=== PATIENT | male | born 1960 | race African-American/Black ===

== ENCOUNTER 2017-01-17 17:11 | Inpatient (IN) ==
[2017-01-17 19:42] LABS: Basophils % 0.6 % (0.0-0.8); Eosinophils # 0.1 10*3/uL (0.0-0.87); Eosinophils % 2.6 % (0.00-10.9); Hematocrit 42.6 VOL% (42.0-52.0); Immature Granulocytes % 0.3 %; Immature Granulocytes Absolute 0.01 #; Lymphocytes # 1.2 10*3/uL (1.4-4.0); Lymphocytes % 38.1 % (21.2-54.2); Mean Corpuscular HGB Conc 32.9 GM/DL (32-36); Mean Corpuscular Hemoglobin 30 PG (27-34); Mean Corpuscular Volume 89.9 FL (87-102); Mean Platelet Volume 9.9 FL (9.6-12.0); Monocytes # 0.2 10*3/uL (0.11-0.8); Monocytes % 7.7 % (1.7-12.7); Neutrophils # 1.6 10*3/uL (1.4-7.4); Neutrophils % 50.7 % (38.7-73.9); Platelet Count 215 T/CUMM (130-400); Red Blood Count 4.74 MC/CUMM (3.8-5.5); Red Cell Distribution Width 12.3 % (9.3-17.3); White Blood Count 3.1 T/CUMM (4-12)
--- NOTE | 2017-01-17 19:46 | CT Report ---
Referring physician: Bushra Youssef MD Exam: CT brain without contrast Date: January 17, 2017 Comparison: CT brain April 06, 2016 Reason: Acute ataxia The patient is an Emergency Department patient on January 17, 2017. Technique: Axial images of the head were obtained without the use of contrast. Total DLP was 1012.1 mGy*cm. 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 There is also mild generalized cerebral and cerebellar atrophy/volume loss and probable chronic microvascular ischemic change. No hydrocephalus or midline shift is present. There is no evidence of recent intracranial hemorrhage, abnormal mass effect or an acute infarction. No acute osseous process is seen. There is mild opacification of the posterior right ethmoid air cells/right sphenoid sinus. The mastoid air cells appear clear. Note is made of chronic deformity of the left globe/eye. Impression: 1. No acute intracranial process is identified. 2. Chronic findings, similar to before. The CT exam was performed using one or more of the following dose reduction techniques: Automated exposure control and adjustment of the mA and/or kV according to patient size. PROCEDURE INTERPRETED AT [facility] DEPARTMENT OF RADIOLOGY Final Report Signed by: Dr. Mame Tracy
[2017-01-17 19:58] LABS: Alanine Aminotransferase < 9 U/L (16-61); Alkaline Phosphatase 226 U/L (45-117); Aspartate Amino Transferase 25 U/L (0-37); Blood Urea Nitrogen 7 MG/DL (7-18); Calcium 8.8 MG/DL (8.5-10.1); Glucose 91 MG/DL (74-106); Potassium 3.6 MMOL/L (3.5-5.1); Sodium 136 MMOL/L (136-145); Total Protein 8.2 G/DL (6.4-8.3)
[2017-01-17 20:04] LABS: Apearance,Urine CLEAR (Clear); Bilirubin,Urine Negative (Negative); Blood, Urine Negative (Negative); Glucose,Urine (UA) Negative (Negative); Ketones,Urine Negative (Negative); Nitrite,Urine Negative (Negative); Protein,Urine Negative; RBC,Urine <1 /HPF (0-4); Urine Color Yellow (Yellow); Urine Specific Gravity 1.004 (1.001-1.035); Urine Urobilinogen < 2.0 EU/DL (0.2-1.0)
[2017-01-17 20:09] LABS: INR 1.1; PT Patient Result 11.8 SECS; Partial Thromboplastin Time 24.3 SECS (0-40)
[2017-01-17 20:13] LABS: Barbiturates Screen,Urine Negative (Negative); Benzodiazepines Screen,Urine Negative (Negative); Cannabinoid Screen,Urine Negative (Negative); Opiate Screen,Urine Negative (Negative); Phencyclidine Screen,Urine Negative (Negative)
[2017-01-17] MEDS ORDERED: ONDANSETRON 4 MG/2 ML VIAL IV PRN (21:29)
[2017-01-17] MEDS ORDERED: ASPIRIN EC 325 MG TABLET PO PRN (21:32)
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
[2017-01-17] MEDS: SODIUM CHLORIDE 0.45% 1,000 ML IV SCH (22:30)
[2017-01-17] MEDS: ENOXAPARIN 40 MG/0.4 ML SYRINGE SUBCUT SCH (23:06)
[2017-01-18] MEDS: SODIUM CHLORIDE 0.45% 1,000 ML IV SCH ×3 (05:55→21:48)
[2017-01-18 06:54] LABS: Basophils % 0.7 % (0.0-0.8); Eosinophils # 0.1 10*3/uL (0.0-0.87); Hematocrit 37.2 VOL% (42.0-52.0); Immature Granulocytes % 0.3 %; Immature Granulocytes Absolute 0.01 #; Lymphocytes # 1.3 10*3/uL (1.4-4.0); Lymphocytes % 44.4 % (21.2-54.2); Mean Corpuscular HGB Conc 32.3 GM/DL (32-36); Mean Corpuscular Hemoglobin 29 PG (27-34); Mean Corpuscular Volume 89.9 FL (87-102); Mean Platelet Volume 9.9 FL (9.6-12.0); Monocytes # 0.3 10*3/uL (0.11-0.8); Monocytes % 8.5 % (1.7-12.7); Neutrophils # 1.3 10*3/uL (1.4-7.4); Neutrophils % 44.1 % (38.7-73.9); Platelet Count 197 T/CUMM (130-400); Red Blood Count 4.14 MC/CUMM (3.8-5.5); Red Cell Distribution Width 12.5 % (9.3-17.3)
[2017-01-18 07:34] LABS: Alanine Aminotransferase < 9 U/L (16-61); Alkaline Phosphatase 181 U/L (45-117); Aspartate Amino Transferase 19 U/L (0-37); Blood Urea Nitrogen 6 MG/DL (7-18); Glucose 80 MG/DL (74-106); Osmolality,Calculated 275.4 MOS/KG (273-304); Potassium 3.5 MMOL/L (3.5-5.1); Sodium 140 MMOL/L (136-145)
[2017-01-18 07:51] LABS: Hypochromasia 1+; Platelet Estimate Normal
[2017-01-18] MEDS: LACOSAMIDE 50 MG TABLET PO SCH ×2 (08:46→21:48)
[2017-01-18] MEDS: PANTOPRAZOLE 40 MG TABLET PO SCH (08:46)
--- NOTE | 2017-01-18 10:37 | Hospitalist Progress Note ---
Assessment and Plan (1) Seizure disorder Status: Chronic Assessment and plan: Continue vimpat Holding dilantin Neurology consult tomorrow Current Visit: No (2) Dizziness Status: Resolved Current Visit: Yes (3) Dilantin toxicity Status: Acute Assessment and plan: Trending down Continue to hold Neurology consult tomorrow Current Visit: Yes Hospitalist: Subjective Interval history: No acute events overnight. Dilantin level trending down. Patient feels better, denies dizziness. Exam - Constitutional Vitals: Period Temp Pulse Resp BP Sys/Davis Pulse Ox Last 24 Hr 97.5 F-98.7 F 69-79 18-20 93-127/62-76 94-98 General appearance: normal weight - Head Head exam: Present: normocephalic, atraumatic - Eye Eye exam: Present: EOMI Pupils: Present: KIMBERLY - ENT ENT exam: Present: normal exam - Neck Neck exam: Present: normal inspection - Respiratory Respiratory exam: Present: clear to auscultation bilaterally. Absent: rhonchi, wheezes - Cardiovascular Cardiovascular exam: Present: regular rate and rhythm - GI/Abdominal GI/Abdominal exam: Present: normal bowel sounds, soft. Absent: tenderness, rebound - Extremities Exam Extremities exam: Present: normal inspection - Back Exam Back exam: Present: normal inspection - Neurological Exam Neurological exam: Present: alert, oriented X3 - Psychiatric Psychiatric exam: Present: normal affect, normal mood - Skin Skin exam: Present: warm, intact Results - Labs CBC & BMP: 01/18/17 06:35 01/18/17 06:35
[2017-01-18] MEDS: ENOXAPARIN 40 MG/0.4 ML SYRINGE SUBCUT SCH (21:48)
[2017-01-19] MEDS: SODIUM CHLORIDE 0.45% 1,000 ML IV SCH ×2 (06:04→14:06)
[2017-01-19 07:48] LABS: Basophils % 0.5 % (0.0-0.8); Eosinophils # 0.1 10*3/uL (0.0-0.87); Eosinophils % 1.7 % (0.00-10.9); Hematocrit 35.4 VOL% (42.0-52.0); Hemoglobin 11.6 GM/DL (14.0-18.0); Immature Granulocytes % 0.2 %; Immature Granulocytes Absolute 0.01 #; Lymphocytes # 1.5 10*3/uL (1.4-4.0); Lymphocytes % 35.9 % (21.2-54.2); Mean Corpuscular HGB Conc 32.8 GM/DL (32-36); Mean Corpuscular Hemoglobin 29 PG (27-34); Mean Corpuscular Volume 89.8 FL (87-102); Mean Platelet Volume 10.8 FL (9.6-12.0); Monocytes # 0.3 10*3/uL (0.11-0.8); Monocytes % 7.6 % (1.7-12.7); Neutrophils # 2.2 10*3/uL (1.4-7.4); Neutrophils % 54.1 % (38.7-73.9); Platelet Count 188 T/CUMM (130-400); Red Blood Count 3.94 MC/CUMM (3.8-5.5); Red Cell Distribution Width 12.5 % (9.3-17.3); White Blood Count 4.1 T/CUMM (4-12)
[2017-01-19 08:18] LABS: Albumin 2.9 G/DL (3.4-5.0); Bilirubin,Direct 0.1 MG/DL (0.0-0.20); Bilirubin,Indirect 1.1 MG/DL (0.0-1.0); Bilirubin,Total 1.2 MG/DL (0.2-1.0); Total Protein 5.8 G/DL (6.4-8.3)
[2017-01-19] MEDS: PANTOPRAZOLE 40 MG TABLET PO SCH (08:32)
[2017-01-19] MEDS: LACOSAMIDE 50 MG TABLET PO SCH (08:32)
[2017-01-19 09:08] LABS: Calcium 7.9 MG/DL (8.5-10.1); Magnesium 1.8 MG/DL (1.8-2.4); Osmolality,Calculated 273.5 MOS/KG (273-304); Potassium 3.6 MMOL/L (3.5-5.1)
[2017-01-19 12:17] VITALS: BP 101/70
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
[2017-01-19] MEDS ORDERED: LACOSAMIDE 50 MG TABLET PO SCH (14:22)
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
== END 2017-01-19 15:35 | disposition left against medical advice (07) | DRG 149 ==
LOC: N.ED 17:11 → N.EDINP 21:29 → SUATTDRO 21:29 → N.5E 22:11
PROVIDERS: ADMIT Student in an Organized Health Care Education/Training Program; ATTEND Internal Medicine

== ENCOUNTER 2017-03-03 15:22 | Inpatient (IN) ==
[2017-03-03] MEDS ORDERED: SODIUM CHLORIDE 0.9% 500 ML IV STA (16:06)
[2017-03-03 16:17] LABS: Eosinophils # 0.1 10*3/uL (0.0-0.87); Eosinophils % 3.7 % (0.00-10.9); Hematocrit 39.7 VOL% (42.0-52.0); Hemoglobin 13.1 GM/DL (14.0-18.0); Immature Granulocytes % 0.3 %; Immature Granulocytes Absolute 0.01 #; Lymphocytes # 1.6 10*3/uL (1.4-4.0); Lymphocytes % 42.5 % (21.2-54.2); Mean Corpuscular Hemoglobin 30 PG (27-34); Mean Corpuscular Volume 91.7 FL (87-102); Mean Platelet Volume 9.9 FL (9.6-12.0); Monocytes # 0.4 10*3/uL (0.11-0.8); Monocytes % 10.2 % (1.7-12.7); Neutrophils # 1.6 10*3/uL (1.4-7.4); Neutrophils % 42.3 % (38.7-73.9); Platelet Count 190 T/CUMM (130-400); Red Blood Count 4.33 MC/CUMM (3.8-5.5); Red Cell Distribution Width 12.2 % (9.3-17.3); White Blood Count 3.8 T/CUMM (4-12)
[2017-03-03 16:20] LABS: Apearance,Urine CLEAR (Clear); Bilirubin,Urine Negative (Negative); Blood, Urine Negative (Negative); Glucose,Urine (UA) Negative (Negative); Ketones,Urine Negative (Negative); Nitrite,Urine Negative (Negative); Protein,Urine Negative; RBC,Urine 1 /HPF (0-4); Urine Color Colorless (Yellow); Urine Specific Gravity 1.001 (1.001-1.035); Urine Urobilinogen < 2.0 EU/DL (0.2-1.0); WBC,Urine <1 /HPF (0-6)
[2017-03-03 16:25] LABS: Barbiturates Screen,Urine Negative (Negative); Benzodiazepines Screen,Urine Negative (Negative); Cannabinoid Screen,Urine Negative (Negative); Opiate Screen,Urine Negative (Negative); Phencyclidine Screen,Urine Negative (Negative)
[2017-03-03 16:34] LABS: Alanine Aminotransferase 14 U/L (16-61); Albumin 3.6 G/DL (3.4-5.0); Alkaline Phosphatase 211 U/L (45-117); Aspartate Amino Transferase 28 U/L (0-37); Bilirubin,Total < 0.39 MG/DL (0.2-1.0); Blood Urea Nitrogen 4 MG/DL (7-18); Calcium 8.3 MG/DL (8.5-10.1); Glucose 81 MG/DL (74-106); Magnesium 1.9 MG/DL (1.8-2.4); Osmolality,Calculated 281.8 MOS/KG (273-304); Potassium 3.5 MMOL/L (3.5-5.1); Sodium 144 MMOL/L (136-145); Total Protein 6.6 G/DL (6.4-8.3)
--- NOTE | 2017-03-03 16:34 | Emergency Department Note ---
Ifeoma Barr Hilary, am scribing for, and in the presence of, Aime La MD 16:09. Abhinav Barr Charles R, MD, personally performed the services described in this documentation, ascribed by Rosalba Dia in my presence, and it is both accurate and complete [id number] . Arrival - Arrival Chief Complaint: Seizure Stated Complaint: seizure ED Nursing Triage Note: Patient arrived via ems with complaint of seizures. Pt has history of seizures. States last seizure was a month ago. Mode of Arrival: Stretcher Limitations: No Limitations Source: Patient, RN Notes Reviewed Time Seen by Provider: 03/03/17 15:55 - History of Present Illness HPI Narrative: Pt is a 56 y/o black male brought into the ED via EMS for c/o a seizure. He reports that he has had seizures before and takes Dilantin as prescribed. Pt denies any injury following the event. No other complaints or problems stated in the ED. Onset (ago): minute(s) Consistency: now resolved Severity: mild Severity scale (1-10): 1 Allergies/Adverse Reactions: Allergies Allergy/AdvReac Type Severity Reaction Status Date / Time No Known Allergies Allergy Verified 01/17/17 18:40 Home Medications: Home Medications Medication Instructions Recorded Confirmed Type Phenytoin Sodium Extended 100 mg PO TID 04/28/15 01/17/17 History [Dilantin] Aspirin [Ecotrin] 2 tablet PO DAILY PRN 06/05/15 01/17/17 History Lacosamide Tab [Vimpat Tab] 50 mg PO BID #60 tablet 04/07/16 01/17/17 Rx Review of System - Review of System 12 point system: reviewed and no additional remarkable complaints except as stated - Review of System Constitutional: Absent: fever Neurological: Present: other (Seizure) Medical,Surgical,& Family Hx - Medical History Cardio: No history of: Hypertension Neurology: History of: Seizures HEENT: History of: Eye Problem (no vision left eye since head injury 2005) Endocrine: No history of: Diabetes Mellitus (IDDM), Diabetes Mellitus (NIDDM) Respiratory: No history of: Bronchitis, Pneumonia Renal: No history of: Renal Failure, Renal Problems Gastrointestinal: No history of: Gastrointestinal Bleed, Liver Problems, GI Problems - Surgical History Orthopedic Surgeries: Surgical HX of;: Orthopedic Surgery (ORIF hips bilaterally ) - Family History Family History: Reports;: Family Cancer (sister breast) - Social History Smoking Status: Smoker, status unknown Frequency of Alcohol Use: None Type of Drug Use: None Exam Vital Signs: Vital Signs Temperature 98.3 F 03/03/17 15:23 Pulse Rate 62 03/03/17 15:23 Respiratory Rate 15 03/03/17 15:23 Blood Pressure 135/83 03/03/17 15:23 O2 Sat by Pulse Oximetry 96 03/03/17 15:23 - General General appearance: alert, in no apparent distress, other (skinny, malnourished looking) - Head Head exam: Present: atraumatic, normocephalic - Eye Eye exam: Present: normal appearance (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 Absent: mucous membranes dry - Neck Neck exam: Present: full ROM, trachea midline. Absent: tenderness - Chest Chest inspection: Present: symmetric chest wall rise. Absent: tenderness - Respiratory Respiratory exam: Present: normal lung sounds bilaterally, rhonchi (bilateral), wheezes (slight wheezes) - Cardiovascular Cardiovascular exam: Present: regular rate, normal rhythm, normal heart sounds. Absent: murmur, rubs, gallop - Abdominal Exam Abdominal exam: Present: soft, normal bowel sounds. Absent: distention, tenderness - Extremities Exam Extremities exam: Present: full ROM. Absent: tenderness - Back Exam Back exam: Present: full ROM. Absent: tenderness - Neurological Exam Neurological exam: Present: alert, oriented X3, CN II-XII intact. Absent: motor sensory deficit - Psychiatric Psychiatric exam: Present: normal affect, normal mood - Skin Skin exam: Present: warm, dry, intact, normal color. Absent: rash Course - Consultations Consultation #1: Hospitalist will admit patient Time: 16:54 Results - Labs CBC & BMP: 03/03/17 15:58 03/03/17 15:58 Lab Results: I have reviewed the patients labs Labs: Laboratory Tests 03/03/17 03/03/17 03/03/17 15:58 15:58 15:58 WBC 3.8 L RBC 4.33 Hgb 13.1 L Hct 39.7 L Baso % (Auto) 1.0 H Urine pH 7.0 Ur Specific [place] 1.001 Urine Urobilinogen < 2.0 H Urine RBC 1 Urine WBC <1 Urine Opiates Screen Negative Ur Barbiturates Screen Negative Ur Phencyclidine Scrn Negative U Amphetamine/Methamph Negative U Benzodiazepines Scrn Negative U Cocaine Metab Screen Negative U Cannabinoids Screen Negative Disposition Clinical Impression: Breakthrough seizure, Dilantin toxicity Case discussed with: patient Disposition: Still a Patient Condition: Stable Time of Disposition: 17:09
--- NOTE | 2017-03-03 16:55 | EKG Report ---
Stationary ECG Study [facility] ER Test Date: 03/03/2017 4:54:46 PM Pat Name: LUPE DUGAN Department: Room: Gender: M Process Controller: : 1960 Requested by: Aime Churchill Order Number: [id number] Reading MD: SCOTT BURGER Intervals [place] Rate: 70 P: 78 NV: 221 QRS: 64 QRSD: 86 T: 77 QT: 400 QTc: 420 Interpretive Statements SINUS RHYTHM WITH PROLONGED NV INTERVAL Electronically Signed On 03-04-17 17:07:51 CDT by SCOTT BURGER [email or web address]
--- NOTE | 2017-03-03 19:00 | Hospitalist History & Physical ---
Assessment and Plan - Time spent with patient Time spent with patient: Greater than 30 minutes (1) Dilantin toxicity Status: Acute Assessment and plan: Patient Dilantin level is greater than 35. Patient will be admitted for observation. Will recheck Dilantin levels in the a.m. Current Visit: No History of Present Illness Chief complaint: seizure-like activity History of present illness: Mr. Riley is a 56 year old male with a past medical history significant for seizures who presents to the ED via EMS with complaints of seizure-like activity with onset earlier today. Patient reports that he was at home, surrounded by family, he began to feel as though he was about to experience a seizure. Patient said he sat down and talked to his nephew through the entire process. Patient denies falling, hitting his head, loss of consciousness, micturition. Patient is followed by Dr. Na Oliveira at the [facility] in [place] and does take Keppra, Dilantin and aspirin daily. On admission, the patient's lab work reveals elevated Dilantin levels at 35. Patient has been admitted previously for similar complaints. Of note, the patient experienced left eye trauma approximately 11 years ago and has been experiencing seizures since that time. We will admit the patient for observation overnight and monitoring of his Dilantin levels. Patient is a very thin male and the Dilantin level may be to high for him. Patient reports complete compliance with medication. He denies alcohol, tobacco or substance abuse. Case has been discussed with Dr. Kinney, admitting physician. Patient is a full code. His home meds have been reviewed and reconciled. Home Medications Medication Instructions Recorded Confirmed Type Aspirin [Ecotrin] 650 tablet PO DAILY 06/05/15 03/03/17 History Phenytoin ER Cap [Dilantin Cap] 100 mg PO TID 03/03/17 03/03/17 History levETIRAcetam TAB [Keppra Tab] 500 mg PO DAILY 03/03/17 03/03/17 History Allergies Allergy/AdvReac Type Severity Reaction Status Date / Time No Known Allergies Allergy Verified 01/17/17 18:40 Medical,Surgical,& Family Hx - Medical History Cardio: No history of: Hypertension Neurology: History of: Seizures HEENT: History of: Eye Problem (no vision left eye since head injury 2005) Endocrine: No history of: Diabetes Mellitus (IDDM), Diabetes Mellitus (NIDDM) Respiratory: No history of: Bronchitis, Pneumonia Renal: No history of: Renal Failure, Renal Problems Gastrointestinal: No history of: Gastrointestinal Bleed, Liver Problems, GI Problems - Surgical History Orthopedic Surgeries: Surgical HX of;: Orthopedic Surgery (ORIF hips bilaterally ) - Family History Family History: Reports;: Family Cancer (sister breast), Family Hypertension - Social History Smoking Status: Former smoker Have you smoked in the last 12 months: Yes (Patient states he has not smoked in 2 months.) Frequency of Alcohol Use: None Type of Drug Use: None Marital Status: Single Lives With:: Alone Functional capacity: independent ambulation - Constitutional Constitutional: Absent: fatigue, fever(s), frequent falls, headache(s) - EENT Eyes: Absent: blurry vision Ears: Absent: decreased hearing Nose, mouth and throat: Absent: dysphagia, headache(s), neck mass, vertigo - Cardiovascular Cardiovascular: Absent: chest pain at rest, chest pain with activity, diaphoresis, dyspnea, edema, radiating jaw, neck or arm pain - Respiratory Respiratory: Absent: cough, dyspnea, dyspnea on exertion, wheezing, snoring, pain on inspiration - Gastrointestinal Gastrointestinal: Absent: abdominal pain, change in bowel habits, hematemesis, nausea, vomiting - Genitourinary Genitourinary: Absent: difficulty urinating, dysuria - Musculoskeletal Musculoskeletal: Absent: arthralgias, back pain - Neurological Neurological: Present: dizziness. Absent: abnormal gait, abnormal speech, confusion, numbness, syncope, tremor(s) - Psychiatric Psychiatric: Absent: anxiety, depression - Endocrine Endocrine: Absent: cold intolerance, heat intolerance - Hematologic/Lymphatic Hematologic/Lymphatic: Absent: easy bleeding, easy bruising Exam - Constitutional Vitals: Period Temp Pulse Resp BP Sys/Davis Pulse Ox Last 24 Hr 98.3 F-98.3 F 62-82 11-22 103-139/77-96 96-98 General appearance: mild distress, cachectic - Head Head exam: Absent: normocephalic, atraumatic - Eye Eye exam: Present: EOMI, other (History of left eye trauma) Pupils: Present: KIMBERLY - ENT ENT exam: Present: normal exam - Neck Neck exam: Absent: lymphadenopathy, tenderness, thyromegaly - Respiratory Respiratory exam: Present: clear to auscultation bilaterally. Absent: rales, rhonchi, wheezes - Cardiovascular Cardiovascular exam: Present: regular rate and rhythm. Absent: bradycardia, carotid bruit - GI/Abdominal GI/Abdominal exam: Present: normal bowel sounds. Absent: ascites, distended, mass, tenderness, rebound - Extremities Exam Extremities exam: Present: normal inspection - Back Exam Back exam: Present: normal inspection. Absent: CVA tenderness (L), CVA tenderness (R) - Neurological Exam Neurological exam: Present: alert, oriented X3, CN II-XII intact, reflexes normal - Psychiatric Psychiatric exam: Present: normal affect, normal mood - Skin Skin exam: Present: normal color, warm, dry Results - Labs CBC & BMP: 03/03/17 15:58 03/03/17 15:58 Lab Results: I have reviewed the past 24 hour labs - EKG EKG results: interpreted by ELODIA, sinus rhythm (With prolonged CA interval)
[2017-03-03] MEDS ORDERED: DOCUSATE SODIUM 100 MG CAPSULE PO PRN (19:08)
[2017-03-03] MEDS ORDERED: ONDANSETRON 4 MG/2 ML VIAL IV PRN (19:08)
[2017-03-03] MEDS ORDERED: ACETAMINOPHEN 325 MG TABLET PO PRN (19:08)
[2017-03-03] MEDS ORDERED: ZALEPLON 5 MG CAPSULE PO PRN (19:08)
[2017-03-04 05:19] LABS: Basophils % 0.9 % (0.0-0.8); Eosinophils # 0.1 10*3/uL (0.0-0.87); Eosinophils % 3.2 % (0.00-10.9); Hematocrit 39.6 VOL% (42.0-52.0); Hemoglobin 13.1 GM/DL (14.0-18.0); Lymphocytes # 1.4 10*3/uL (1.4-4.0); Lymphocytes % 39.3 % (21.2-54.2); Mean Corpuscular HGB Conc 33.1 GM/DL (32-36); Mean Corpuscular Hemoglobin 30 PG (27-34); Mean Corpuscular Volume 90.6 FL (87-102); Mean Platelet Volume 10.2 FL (9.6-12.0); Monocytes # 0.4 10*3/uL (0.11-0.8); Monocytes % 10.7 % (1.7-12.7); Neutrophils # 1.6 10*3/uL (1.4-7.4); Neutrophils % 45.9 % (38.7-73.9); Platelet Count 205 T/CUMM (130-400); Red Blood Count 4.37 MC/CUMM (3.8-5.5); Red Cell Distribution Width 12.1 % (9.3-17.3); White Blood Count 3.5 T/CUMM (4-12)
[2017-03-04 05:40] LABS: Calcium 8.4 MG/DL (8.5-10.1); Magnesium 1.8 MG/DL (1.8-2.4); Osmolality,Calculated 281.8 MOS/KG (273-304); Potassium 3.3 MMOL/L (3.5-5.1)
[2017-03-04] MEDS ORDERED: levETIRAcetam 500 MG TABLET PO SCH (09:00)
[2017-03-04] MEDS: ASPIRIN EC 325 MG TABLET PO SCH (09:23)
[2017-03-04] MEDS: PANTOPRAZOLE 40 MG TABLET PO SCH (09:23)
--- NOTE | 2017-03-04 14:30 | Neurology Consult Note ---
History of Present Illness History of present illness: Mr. Riley is a 56 year old RH gentleman with a past medical history significant for seizures who presents to the ED via EMS with complaints of seizure-like activity started Thursday. Patient reports that he was at home, surrounded by family, he began to feel as though he was about to experience a seizure. Patient said he sat down and talked to his nephew through the entire process. Patient denies falling, hitting his head, loss of consciousness, or incontinence of urine or tongue bite. On admission, the patient's lab work reveals elevated Dilantin levels at 35 and today is up to 40. Patient has been admitted previously for similar complaints. Of note, the patient experienced left eye trauma approximately 11 years ago and has been experiencing seizures since that time. Home Medications Medication Instructions Recorded Confirmed Type Aspirin [Ecotrin] 650 tablet PO DAILY 06/05/15 03/03/17 History Phenytoin ER Cap [Dilantin Cap] 100 mg PO TID 03/03/17 03/03/17 History levETIRAcetam TAB [Keppra Tab] 500 mg PO DAILY 03/03/17 03/03/17 History Allergies Allergy/AdvReac Type Severity Reaction Status Date / Time No Known Allergies Allergy Verified 01/17/17 18:40 12 point system: reviewed and no additional remarkable complaints except as stated Medical,Surgical,& Family Hx - Medical History Cardio: No history of: Hypertension Neurology: History of: Seizures HEENT: History of: Eye Problem (no vision left eye since head injury 2005) Endocrine: No history of: Diabetes Mellitus (IDDM), Diabetes Mellitus (NIDDM) Respiratory: No history of: Bronchitis, Pneumonia Renal: No history of: Renal Failure, Renal Problems Gastrointestinal: No history of: Gastrointestinal Bleed, Liver Problems, GI Problems - Surgical History Orthopedic Surgeries: Surgical HX of;: Orthopedic Surgery (ORIF hips bilaterally ) - Family History Family History: Reports;: Family Cancer (sister breast), Family Hypertension - Social History Smoking Status: Current every day smoker Frequency of Alcohol Use: None Type of Drug Use: None Exam - Constitutional Vitals: Period Temp Pulse Resp BP Sys/Davis Pulse Ox Last 24 Hr 97.4 F-99.1 F 62-83 11-22 90-139/56-96 92-98 Exam: GENERAL: Patient is in no acute distress. NECK: Neck is supple. There is no JVD. No carotid bruits present. No thyroid masses. CVS: First and second heart sounds are normal. There is no S3 present. Regular rate and rhythm. RESPIRATORY: Lungs are clear to auscultation without any rales or rhonchi. ABDOMEN: Soft and non-tender. Bowel sounds are present. There is no hepatosplenomegaly. EXT: There is no palpable edema. Peripheral pulses are present. Skin: No rashes Central Nervous system: General: Alert, awake and Oriented x 3 Speech: Fluent Comprehension: Intact and normal Facial expressions: Normal Cranial Nerves: CN1/Olfactory: Normal CN II/ Optic: Normal, Visual Cuellar unreliable, left eye he is legally blind CN III, and : KIMBERLY & EOMI CN V: Normal & intact CN VII: face is symmetric CNVIII: Normal CN XI/X/XI/XII: Intact and Normal Motor: Bulk and Tone is normal. Strength in the right 5/5 Strength in the left 5/5 Sensory: Grossly intact for all the modalities of PP, LT and temp sense Reflexes: 1+ and symmetrical Cerebellar function: Normal finger to nose and heel to leong testing. Toes: Equivocal Gait: Somewhat ataxic Results - Labs CBC & BMP: 03/04/17 04:54 03/04/17 04:54 Assessment and Plan (1) Seizure disorder Status: Chronic Assessment and plan: Change Keppra to 500 mg p.o. twice daily Hold off to Dilantin We will monitor Thank you for the consult Current Visit: No
--- NOTE | 2017-03-04 16:29 | Hospitalist Progress Note ---
Assessment and Plan - Time spent with patient Time spent with patient: Greater than 30 minutes (1) Seizure Status: Chronic Assessment and plan: Neurology has evaluated and adjusted his seizure medications. His Dilantin level was noted to be elevated and has been discontinued. Current Visit: No Hospitalist: Subjective Interval history: No recurrence of seizures since admission. Patient has no complaints. He was evaluated by neurology. Exam - Constitutional Vitals: Period Temp Pulse Resp BP Sys/Davis Pulse Ox Last 24 Hr 97.4 F-99.1 F 62-83 11-22 90-139/56-96 92-98 General appearance: no acute distress - Head Head exam: Present: normocephalic, other (History of trauma to left temporal bone). Absent: normal inspection - Eye Eye exam: Present: other (Left eye patch) - ENT ENT exam: Present: normal exam - Neck Neck exam: Present: normal inspection - Respiratory Respiratory exam: Present: clear to auscultation bilaterally. Absent: rhonchi, wheezes - Cardiovascular Cardiovascular exam: Present: regular rate and rhythm. Absent: gallop, rubs, systolic murmur - GI/Abdominal GI/Abdominal exam: Present: normal bowel sounds, soft. Absent: distended, firm , guarding, tenderness, rebound - Extremities Exam Extremities exam: Present: normal inspection. Absent: calf tenderness, edema Results - Labs CBC & BMP: 03/04/17 04:54 03/04/17 04:54 Lab Results: I have reviewed the past 24 hour labs
[2017-03-04] MEDS: levETIRAcetam 500 MG TABLET PO SCH (21:08)
--- NOTE | 2017-03-05 09:13 | Neurology Progress Note ---
Neurology - PN : Subjective Interval history: Patient seems to be doing better. No seizures reported. Current Dilantin level is pending. Tolerating Keppra well. Slept well last night Exam (Progress Note) - Constitutional Vitals: Period Temp Pulse Resp BP Sys/Davis Pulse Ox Last 24 Hr 97.4 F-98.9 F 72-85 18-20 90-118/56-75 92-98 Exam: GENERAL: Patient is in no acute distress. NECK: Neck is supple. There is no JVD. No carotid bruits present. No thyroid masses. CVS: First and second heart sounds are normal. There is no S3 present. Regular rate and rhythm. RESPIRATORY: Lungs are clear to auscultation without any rales or rhonchi. ABDOMEN: Soft and non-tender. Bowel sounds are present. There is no hepatosplenomegaly. EXT: There is no palpable edema. Peripheral pulses are present. Skin: No rashes Central Nervous system: General: Alert, awake and Oriented x 3 Speech: Fluent Comprehension: Intact and normal Facial expressions: Normal Cranial Nerves: CN1/Olfactory: Normal CN II/ Optic: Normal, Visual Cuellar unreliable, left eye he is legally blind CN III, and : KIMBERLY & EOMI CN V: Normal & intact CN VII: face is symmetric CNVIII: Normal CN XI/X/XI/XII: Intact and Normal Motor: Bulk and Tone is normal. Strength in the right 5/5 Strength in the left 5/5 Sensory: Grossly intact for all the modalities of PP, LT and temp sense Reflexes: 1+ and symmetrical Cerebellar function: Normal finger to nose and heel to leong testing. Toes: Equivocal Gait: Walking better today Results - Labs CBC & BMP: 03/04/17 04:54 03/04/17 04:54 Assessment and Plan (1) Seizure disorder Status: Chronic Assessment and plan: Continue Keppra to 500 mg p.o. twice daily We will probably take him off of Dilantin completely and optimize Keppra We will follow-up on Dilantin level Current Visit: No
[2017-03-05] MEDS: PANTOPRAZOLE 40 MG TABLET PO SCH (09:45)
[2017-03-05] MEDS: ASPIRIN EC 325 MG TABLET PO SCH (09:45)
[2017-03-05] MEDS: levETIRAcetam 500 MG TABLET PO SCH ×2 (09:45→20:50)
--- NOTE | 2017-03-05 16:16 | Hospitalist Progress Note ---
Assessment and Plan - Time spent with patient Time spent with patient: Greater than 30 minutes (1) Seizure Status: Chronic Assessment and plan: Continue current management as per neurology. Current Visit: No Hospitalist: Subjective Interval history: No complaints overnight events. Exam - Constitutional Vitals: Period Temp Pulse Resp BP Sys/Davis Pulse Ox Last 24 Hr 97.8 F-98.9 F 72-85 18-20 98-118/57-75 91-98 General appearance: no acute distress - Head Head exam: Present: normocephalic, atraumatic - Eye Eye exam: Present: EOMI Pupils: Present: KIMBERLY - ENT ENT exam: Present: normal exam - Neck Neck exam: Present: normal inspection - Respiratory Respiratory exam: Present: clear to auscultation bilaterally. Absent: rhonchi, wheezes - Cardiovascular Cardiovascular exam: Present: regular rate and rhythm. Absent: gallop, rubs, systolic murmur - GI/Abdominal GI/Abdominal exam: Present: normal bowel sounds, soft. Absent: distended, firm , guarding, tenderness, rebound - Extremities Exam Extremities exam: Present: normal inspection. Absent: calf tenderness, edema Results - Labs CBC & BMP: 03/04/17 04:54 03/04/17 04:54 Lab Results: I have reviewed the past 24 hour labs
[2017-03-05] MEDS: POTASSIUM CHLORIDE 20 MEQ TABLET PO PRN ×3 (18:13→23:17)
[2017-03-06] MEDS: levETIRAcetam 500 MG TABLET PO SCH (08:33)
[2017-03-06] MEDS: PANTOPRAZOLE 40 MG TABLET PO SCH (08:33)
[2017-03-06] MEDS: ASPIRIN EC 325 MG TABLET PO SCH (08:33)
--- NOTE | 2017-03-06 11:37 | Neurology Progress Note ---
Neurology - PN : Subjective Interval history: No more seizures reported. Is still quite ataxic as far as gait is concerned. Dilantin level was 38 yesterday. Exam (Progress Note) - Constitutional Vitals: Period Temp Pulse Resp BP Sys/Davis Pulse Ox Last 24 Hr 97.0 F-98.3 F 72-79 18-79 100-124/57-73 91-97 Exam: GENERAL: Patient is in no acute distress. NECK: Neck is supple. There is no JVD. No carotid bruits present. No thyroid masses. CVS: First and second heart sounds are normal. There is no S3 present. Regular rate and rhythm. RESPIRATORY: Lungs are clear to auscultation without any rales or rhonchi. ABDOMEN: Soft and non-tender. Bowel sounds are present. There is no hepatosplenomegaly. EXT: There is no palpable edema. Peripheral pulses are present. Skin: No rashes Central Nervous system: General: Alert, awake and Oriented x 3 Speech: Fluent Comprehension: Intact and normal Facial expressions: Normal Cranial Nerves: CN1/Olfactory: Normal CN II/ Optic: Normal, Visual Cuellar unreliable, left eye he is legally blind CN III, and : KIMBERLY & EOMI CN V: Normal & intact CN VII: face is symmetric CNVIII: Normal CN XI/X/XI/XII: Intact and Normal Motor: Bulk and Tone is normal. Strength in the right 5/5 Strength in the left 5/5 Sensory: Grossly intact for all the modalities of PP, LT and temp sense Reflexes: 1+ and symmetrical Cerebellar function: Normal finger to nose and heel to leong testing. Toes: Equivocal Gait: Walking better today Results - Labs CBC & BMP: 03/04/17 04:54 03/06/17 05:16 Assessment and Plan (1) Seizure disorder Status: Chronic Assessment and plan: Continue Keppra to 500 mg p.o. twice daily We will take him off of Dilantin. Recheck Dilantin level today and hopefully home in the morning. Current Visit: No
[2017-03-06 12:27] VITALS: BP 115/71
--- NOTE | 2017-03-06 12:29 | Discharge Summary ---
Hospital Course - Hospital Course Hospital Course: Mr. Riley is a 56-year-old male who presented with seizure. His Dilantin level was noted to be supratherapeutic. His Dilantin was discontinued. Neurology was consulted, and recommended to increase his Keppra from once a day to twice a day. His Dilantin was followed during his hospital stay and was noted to trend downwards. The patient adamantly requested to be discharged despite having still a supratherapeutic Dilantin level of 28. He was instructed to discontinue Dilantin and he will only continue Keppra however at twice daily dosing. By discharge he had met maximum benefit of hospitalization. I spent 32 minutes coordinating this discharge. - Time spent with patient Time with patient DS: Greater than 30 minutes Diagnosis - Discharge Diagnosis (1) Seizure Status: Chronic Discharge Plan - Discharge Data Disposition: Disch To Home/Self Care Condition at Discharge: Stable Discharge Diet: advance to your usual diet Activity: resume usual activities as tolerated - Discharge Medications New levETIRAcetam TAB [Keppra Tab] 500 mg PO BID #60 tablet Continue Aspirin [Ecotrin] 650 tablet PO DAILY Discontinued levETIRAcetam TAB [Keppra Tab] 500 mg PO DAILY Phenytoin ER Cap [Dilantin Cap] 100 mg PO TID - Follow Up or Referral - Forms/Instructions Exam - Constitutional Vitals: Period Temp Pulse Resp BP Sys/Davis Pulse Ox Last 24 Hr 97.0 F-97.8 F 68-79 18-79 104-124/69-73 92-97 General appearance: normal weight, no acute distress - Head Head exam: Present: normal inspection, normocephalic, atraumatic - Eye Eye exam: Present: EOMI, other (left eye patch) Pupils: Present: KIMBERLY - ENT ENT exam: Present: normal exam - Neck Neck exam: Present: normal inspection - Respiratory Respiratory exam: Present: clear to auscultation bilaterally - Cardiovascular Cardiovascular exam: Present: regular rate and rhythm. Absent: bradycardia, irregular rhythm, systolic murmur - GI/Abdominal GI/Abdominal exam: Present: normal bowel sounds. Absent: ascites, hypoactive bowel sounds, tenderness - Extremities Exam Extremities exam: Present: normal inspection Discharge Results Labs on day of discharge: Labs from last 24 hours 03/06/17 03/06/17 11:04 05:16 Potassium 4.1 Phenytoin 27.8 H DS: Provider Date of admission: 03/03/17 17:00 Primary care physician: . No PCP Attending physician on admission: Pablo Kinney MD Consults: 03/03/17 19:16 Consult to Pastoral Services [CONS] Routine Comment: Pastoral Screen: Declines Visit Pastoral Screen Source of Request: Patient 03/04/17 13:55 Consult to Physician [CONS] Routine Comment: Seizure Consulting Provider: Pipe Thompson Consult to Specialist Group: Neurology When should Consulting Provider be notified: Now Person Notified: Vicky Date Notified: 03/04/17 Time Notified: 14:04 Discharging clinician: Corina Frausto MD Expected date of discharge: 03/06/17
--- NOTE | 2017-03-13 08:19 | Physician Query Form ---
CLICK EDIT DOCUMENT TO SELECT QUERY ANSWER --> OK --> SIGN Vicki Rod RN, CCDS Certified Clinical Road Inspector W) [phone] (f) [phone] [email or web address] PROVIDERS: Make your selection(s) from the choices in EACH section by typing an "x" and enter comments in the comment section. Please use your independent medical judgment in providing your response. This request does not imply that any particular answer is desired or expected. 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 of 74", Wt of 113 lb, per ER note: "skinny, malnourished looking", Cachectic, and per dietary notes "Send trial [facility] Boost BID for additional 1060 ashley, 44 g protein". "chronic low body weight though pt denies appetite/intake problem " Based on the above, which following choice most accurately represents the patient's nutritional status? ( x) Malnutrition ( ) mild ( ) moderate ( x) severe ( ) Protein calorie malnutrition ( ) mild ( ) moderate ( ) severe ( ) Emaciation due to malnutrition ( ) Nutritional marasmus ( ) Cachexia ( ) Underweight ( ) No nutritional deficiency ( ) Other, please specify: ( ) Clinically unable to determine Mild Malnutrition (BMI < 18.5, % Normal Body Weight 85-95%) Moderate Malnutrition (BMI < 17, % Normal Body Weight 75-85%) Severe Malnutrition (BMI < 16, % Normal Body Weight < 75%) Source: Danisha COMMENTS: PLEASE ALSO DOCUMENT RESPONSE IN PROGRESS NOTES AND/OR DISCHARGE SUMMARY Use of terms such as suspected, likely, or probable (associated with a specific diagnosis that is being evaluated, monitored, or treated as if it exists) are acceptable and can be restated in the discharge summary if not ruled out. MTDD
== END 2017-03-06 13:39 | disposition home or self-care (01) | DRG 100 ==
LOC: EDBD → EDUNIT# → N.ED 15:22 → SUATTDRO 17:00 → N.EDINP 17:00 → N.5E 18:25
PROVIDERS: ADMIT Internal Medicine; ATTEND Internal Medicine

== ENCOUNTER 2017-10-07 03:20 | Inpatient (IN) ==
[2017-10-07] MEDS ORDERED: TISSUE ADHESIVE 1 EACH APPLICATOR TOP ONE (03:37)
[2017-10-07] MEDS ORDERED: DIPH/TET/ACEL PERT BOOSTER VACCINE 0.5 ML VIAL IM ONE ×2 (03:42→05:03)
[2017-10-07] MEDS ORDERED: SODIUM CHLORIDE 0.9% 500 ML IV STA ×2 (03:42→04:59)
[2017-10-07] MEDS ORDERED: ENOXAPARIN 60 MG/0.6 ML SYRINGE ONE (04:12)
[2017-10-07] MEDS ORDERED: PENICILLIN G BENZATHINE 1,200,000 UNIT/2 ML SYRINGE IM ONE (04:12)
[2017-10-07 04:27] LABS: INR 1.1; PT Patient Result 11.4 SECS
[2017-10-07 04:43] LABS: CKMB % 1.2 %; Troponin I Only 0.023 NG/ML (0.00-0.045)
[2017-10-07 04:54] LABS: Apearance,Urine CLEAR (Clear); Bilirubin,Urine Negative (Negative); Blood, Urine Small mg/dL (Negative); Glucose,Urine (UA) Negative (Negative); Ketones,Urine 5 mg/dL (Negative); Mucus,Urine Occasional /LPF (Occasional); Nitrite,Urine Negative (Negative); Protein,Urine Negative; Squamous Epithelial Cell,Urine Occasional /HPF (0-10); Urine Color Yellow (Yellow); Urine Specific Gravity 1.011 (1.001-1.035); Urine Urobilinogen < 2.0 EU/DL (0.2-1.0); WBC,Urine 1 /HPF (0-6)
[2017-10-07 04:59] LABS: Barbiturates Screen,Urine Negative (Negative); Benzodiazepines Screen,Urine Positive (Negative); Cannabinoid Screen,Urine Negative (Negative); Opiate Screen,Urine Negative (Negative); Phencyclidine Screen,Urine Negative (Negative)
[2017-10-07] MEDS ORDERED: ceFAZolin 1,000 MG VIAL ONE (05:03)
[2017-10-07] MEDS: SODIUM CHLORIDE 0.9% 1,000 ML IV SCH ×2 (09:38→20:26)
[2017-10-07] MEDS ORDERED: levETIRAcetam 500 MG TABLET ONE (09:40)
[2017-10-07] MEDS: levETIRAcetam 500 MG TABLET PO SCH ×2 (09:44→20:19)
[2017-10-07] MEDS ORDERED: PNEUMOCOCCAL VACCINE (13 VALENT) 0.5 ML SYRINGE IM ONE (15:14)
[2017-10-07] MEDS ORDERED: INFLUENZA VIRUS VACCINE 0.5 ML SYRINGE IM ONE (15:14)
[2017-10-07] MEDS: ASPIRIN EC 325 MG TABLET PO SCH (18:12)
[2017-10-08 05:42] LABS: Basophils % 0.5 % (0.0-0.8); Eosinophils # 0.1 10*3/uL (0.0-0.87); Hematocrit 36.6 VOL% (42.0-52.0); Hemoglobin 12.3 GM/DL (14.0-18.0); Immature Granulocytes % 0.3 %; Immature Granulocytes Absolute 0.02 #; Lymphocytes # 2.4 10*3/uL (1.4-4.0); Lymphocytes % 42.2 % (21.2-54.2); Mean Corpuscular HGB Conc 33.6 GM/DL (32-36); Mean Corpuscular Hemoglobin 31 PG (27-34); Mean Platelet Volume 11.3 FL (9.6-12.0); Monocytes # 0.5 10*3/uL (0.11-0.8); Monocytes % 8.9 % (1.7-12.7); Neutrophils # 2.7 10*3/uL (1.4-7.4); Neutrophils % 47.1 % (38.7-73.9); Platelet Count 147 T/CUMM (130-400); Red Blood Count 3.98 MC/CUMM (3.8-5.5); Red Cell Distribution Width 12.1 % (9.3-17.3); White Blood Count 5.7 T/CUMM (4-12)
[2017-10-08 06:17] LABS: Calcium 8.1 MG/DL (8.5-10.1); Osmolality,Calculated 277.3 MOS/KG (273-304); Potassium 3.2 MMOL/L (3.5-5.1); Thyroid Stimulating Hormone 0.924 uIU/ml (0.358-3.74)
[2017-10-08 08:20] VITALS: BP 112/69
[2017-10-08] MEDS: ASPIRIN EC 325 MG TABLET PO SCH (09:07)
[2017-10-08] MEDS: levETIRAcetam 500 MG TABLET PO SCH (09:07)
== END 2017-10-08 09:52 | disposition home or self-care (01) | DRG 101 ==
LOC: N.ED 03:20 → N.EDINP 05:15 → N.TELES 14:42
PROVIDERS: ADMIT Internal Medicine Geriatric Medicine; ATTEND Internal Medicine Geriatric Medicine